=== PATIENT | male | born 1950 | race Caucasian/White ===

== ENCOUNTER → 2022-08-11 | Day surgery (SDC) | payer MEDICARE ==
[~2022-08-11] MED LIST: Acetaminophen 325 MG Tab ONE; EPINEPHrine 1 MG/ML SDV ONE; Lactated Ringers 1,000 ML IV ONE; Lactated Ringers 1,000 ML ONE; Lidocaine 1%/Sod Bicarbonate in NS 8.4% 1 ML Syringe IDERM ONE; Midazolam 1 MG/ML 2 ML SDV ONE; Morphine 8 MG, EPINEPHrine 0.3 MG, Cefuroxime 750 MG, Ketorolac 30 MG, Sodium Chloride ... ONE; Pregabalin 25 MG Cap ONE; Pregabalin 25 MG Cap PO ONE; Propofol 200 MG/20 ML SDV ONE; Ropivacaine 0.5% 5 MG/ML 30 ML SDV ONE; Vancomycin 1 GM SDV ONE; ceFAZolin 2 GM Vial ONE; ePHEDrine 50 MG/ML SDV ONE; fentaNYL 100 MCG/2 ML SDV ONE; oxyCODONE 5 MG Tab ONE; oxyCODONE ER 10 MG TAB.ER ONE; oxyCODONE ER 10 MG TAB.ER PO ONE
== END ==
LOC: JD.SDS 06:00
PROVIDERS: ATTEND Orthopaedic Surgery
DX: M17.12 Unilateral primary osteoarthritis, left knee (principal); I10 Essential (primary) hypertension; I48.91 Unspecified atrial fibrillation; E05.90 Thyrotoxicosis, unspecified without thyrotoxic crisis or storm; G47.30 Sleep apnea, unspecified; E78.00 Pure hypercholesterolemia, unspecified; Z98.890 Other specified postprocedural states
CPT/HCPCS: 0055T; 27447; 73560; 97110; 97116; 97161; A9270; J0171; J0690; J0697; J1885; J2250; J2270; J2704; J2795; J3370; J7120; 01402; 64450; 76942; C1713; C1776; J3010